=== PATIENT | female | born 1970 | race African-American/Black ===

== ENCOUNTER 2017-08-23 00:16 | Emergency (ER) | payer MEDICAID, OTHER ==
[~2017-08-23] VITALS: Ht 167.6 cm; Wt 73.0 kg
[2017-08-23] MEDS ORDERED: KETOROLAC 30MG/ML VIAL IM ONE (02:15)
[2017-08-23] MEDS ORDERED: BACITRACIN ZINC OINT UDPKT TOP ONE (02:15)
[2017-08-23] MEDS ORDERED: LIDOCAINE HCL 1%/EPI 1:200,000 30 ML VIAL MC ONE (02:15)
[2017-08-23] MEDS ORDERED: ONDANSETRON 4MG ODT PO ONE ×3 (02:15→05:45)
[2017-08-23] MEDS ORDERED: TETANUS, DIPHTHERIA, PERTUSSIS VAC/PF 0.5ML (>7YR OLD) IM ONE (02:15)
[2017-08-23] MEDS ORDERED: LIDOCAINE HCL 1% 20ML VIAL (Pyxis) INJ INFIL ONE (04:30)
[2017-08-23] MEDS ORDERED: HYDROCODONE/ACETAMINOPHEN 5/325MG TABLET PO ONE (05:15)
[2017-08-23 06:05] VITALS: BP 140/71
== END 2017-08-23 06:52 | disposition home or self-care (01) ==
LOC: ER 00:24
DX: S62.306A Unspecified fracture of fifth metacarpal bone, right hand, initial encounter for closed fracture (principal); S01.511A Laceration without foreign body of lip, initial encounter; S92.253A Displaced fracture of navicular [scaphoid] of unspecified foot, initial encounter for closed fracture; K13.0 Diseases of lips; I10 Essential (primary) hypertension; F17.200 Nicotine dependence, unspecified, uncomplicated; X58.XXXA Exposure to other specified factors, initial encounter; Y93.89 Activity, other specified; Y92.89 Other specified places as the place of occurrence of the external cause; Y99.8 Other external cause status
CPT/HCPCS: 12011; 29125; 36415; 70450; 73110; 73130; 81025; 90471; 90715; 96372; 99285; G0482; J1885; J3490; Q0162; X7700; Z7610